=== PATIENT | female | born 1970 | race Caucasian/White ===

== ENCOUNTER 2016-07-10 13:18 | Inpatient (IN) | payer BC ==
[~2016-07-10] VITALS: Ht 180.3 cm; Wt 85.0 kg
--- NOTE | ~2016-07-10 | CON ---
PATIENT'S NAME: BETH PATEL [facility] AGE: 45 Y [address] ROOM: [address] [place], [place] [address] LOCATION: GPCU ADMIT DATE: 07/10/2016 Consultation DISCHARGE DATE: FAMILY PHYSICIAN: Priyanka Daugherty APRN ATTENDING PHYSICIAN: Negin CHIRINOS DATE OF CONSULTATION: 07/12/2016 REFERRING PHYSICIAN: Darrin Alexander MD REFERRING PROVIDER: Roby Mina MD REASON FOR CONSULTATION: Atypical chest pain, elevated lipase. HISTORY OF PRESENT ILLNESS: This is a very pleasant, 45-year-old female with no significant past medical history. The patient reports approximately a week ago, she began having fevers with temperature of a 101 degrees as well as general "flu-like symptoms" including nausea, muscle aches, and a few episodes of vomiting. The patient also, at that time, began experiencing chest pressure in the right upper chest. She does complain of some "abdominal discomfort," though denies any kristofer abdominal pain. She has been evaluated at a [facility], was told that she had "chest wall inflammation," and had been discharged. She has been taking ibuprofen 400 mg on a regular basis. The patient states that general malaise and flu-like symptoms continued. She presented to the clinic on the day of admission with significant workup including lab and chest x-ray that were all within normal limits. She was sent to our emergency room for evaluation. She has been worked up cardiac-graham, and all cardiac workup has been negative. She does state that her fever has improved, though continues to have malaise with general body aches and mild sore throat. Lipase was obtained showing elevation at 2043, completed this morning. The patient, on admission, had a lipase of 662 as well as amylase of 65. The patient denies any kristofer GERD-like symptoms. She does state occasionally she will have some "heartburn" if she eats the wrong things. She denies any acute abdominal pain at this time. She has been afebrile while in the hospital. The patient has been able to tolerate half a piece of toast and some apple juice without any increase of pain after ingestion. She does complain of some constipation, where her normal bowel movements are day to day. She also has accompanying headaches. CT abdomen and pelvis was completed last evening, and this did show normal pancreas and biliary tree; this was a negative study. She denies any melena or hematochezia. No history of upper endoscopy or colonoscopy. The patient currently denies any chest pain, chest pressure, shortness of breath, fever, or chills. PATIENT'S NAME: BETH PATEL [facility] AGE: 45 Y [address] ROOM: [place] [address] LOCATION: GPCU ADMIT DATE: 07/10/2016 Consultation DISCHARGE DATE: FAMILY PHYSICIAN: Priyanka Daugherty APRN ATTENDING PHYSICIAN: Negin CHIRINOS PAST MEDICAL HISTORY: Headaches. PAST SURGICAL HISTORY: No history of upper endoscopy or colonoscopy. She denies any other surgeries. SOCIAL HISTORY: The patient is a principal at an elementary school. She denies any alcohol, tobacco, or illicit drug use. FAMILY HISTORY: Significant family history for grandparents having colon cancer and brain cancer. She also states that her father had "problems with his gallbladder." ALLERGIES: NO KNOWN MEDICATION ALLERGIES. CURRENT MEDICATIONS: Please refer to the medication administration record. REVIEW OF SYSTEMS: A 10-point review of systems was completed, all were negative except for those identified in the History of Present Illness. PHYSICAL EXAMINATION: GENERAL: A very pleasant, 45-year-old female, lying in bed, who appears to be in no acute distress. VITAL SIGNS: Temperature 98.2, pulse of 69, respirations of 16, blood pressure 110/60, and oxygen saturation is 95% on room air. SKIN: [place], warm, and dry. No jaundice. HEENT: Head is normocephalic and atraumatic. Pupils are equal, round, and reactive to light. Sclerae are clear, nonicteric. Oral mucosa is pink and moist. No thyromegaly. NECK: Soft and supple. CARDIOVASCULAR: Regular. Normal S1 and S2. RESPIRATORY: Respirations even and unlabored. Lungs clear to auscultation. ABDOMEN: Soft and round. Tender in the midepigastric area as well as the right upper quadrant. Bowel sounds positive to hypoactive x4 quadrants. MUSCULOSKELETAL: No muscle weakness or atrophy. EXTREMITIES: No clubbing, cyanosis, or edema. NEUROLOGICAL: Grossly nonfocal. LABORATORY AND DIAGNOSTIC DATA: Cardiac enzymes have all been within normal limits. White blood cell count of 5.5, hemoglobin of 13.5, hematocrit of 40.0, and platelets of 191. Chemistry PATIENT'S NAME: BETH PATEL [facility] AGE: 45 Y [address] ROOM: [address] [place], [place] [address] LOCATION: GPCU ADMIT DATE: 07/10/2016 Consultation DISCHARGE DATE: FAMILY PHYSICIAN: Priyanka Daugherty APRN ATTENDING PHYSICIAN: Negin CHIRINOS panel includes a glucose of 148, BUN of 10, creatinine is 0.9, sodium 140, potassium of 3.5, chloride of 108, and CO2 of 24. Albumin of 3.6. AST of 10, ALT of 15, and alkaline phosphatase of 53. Total bilirubin 0.9. Lipase on admission was 662; on recheck this morning, it was 2043. Amylase is 65. Chest x-ray completed on 07/11/[address] abdomen and pelvis completed on 07/11/2016 showed negative abdomen with normal pancreas and biliary tree. Negative pelvis. No findings of appendicitis. ASSESSMENT AND PLAN: Again, this is a very pleasant, 45-year-old female who was admitted with chest pressure x1 week. 1. In regard to the patient's atypical chest pain, noncardiac, all workup has been negative for cardiac. The patient complains of some right-sided abdominal pain as well as has had recent frequent nonsteroidal antiinflammatory drug use. At this time, it is recommended for the patient to undergo an upper endoscopy to rule out nonsteroidal antiinflammatory drug-induced ulcer, peptic ulcer disease, or possible celiac disease. 2. Elevated lipase. We do recommend continue trending her pancreatic enzyme. This could be related to mild pancreatitis, though CT scan was negative for any pancreatic fluid. This may also be related to duodenal ulceration, and this could be evaluated during an upper endoscopy. The patient will be made n.p.o. at midnight in preparation for the procedure. The patient verbalizes understanding. Further recommendations will be given status post upper endoscopy. Thank you for this consult and allowing us to participate in the care of this patient. ANA GOLD APRN FOR TIANNA HASSAN MD [facility]/modl /[id number] d: 07/12/16 1456 t: 07/24/16 1150, CONSULTATION REPORT
--- NOTE | ~2016-07-10 | HP ---
PATIENT'S NAME: BETH PATEL [facility] AGE: 45 Y [address] ROOM: [place] [address] LOCATION: GPCU ADMIT DATE: 07/10/2016 History & Physical DISCHARGE DATE: FAMILY PHYSICIAN: Priyanka Daugherty APRN ATTENDING PHYSICIAN: Negin CHIRINOS DATE OF SERVICE: CHIEF COMPLAINT: Chest pain. HISTORY OF PRESENT ILLNESS: The patient is a 45-year-old female with no significant past medical history, who presents here from [place] with chest pain. The patient reports that for the past week or so, she has been having fever with temperature of 101 degree Fahrenheit, last recorded 2 days ago, nausea, muscle aches, and few episodes of vomiting and also associated some sore throat. The patient has been experiencing these symptoms for the past few days and also noticed that she is having some pressure like chest pain around her right upper chest. The patient was seen at [place] and was told that this is due to chest wall inflammation and was discharged home with ibuprofen. However, the patient's symptom of general malaise and flu-like symptoms and also chest pressure continued. The patient once again was seen today at the clinic and had a significant workup, lab work, and chest x-ray including normal D-dimer and within normal limits troponin and normal chest x-ray. However, the patient continued to complain of chest pain and was sent to our emergency department for further evaluation. The patient reports that her chest pain is constant. It is right upper chest. There is no alleviating and exacerbating factors. She currently rates her chest pain 5/10. On palpation of chest wall, chest pain is somewhat reproducible. She also reports that her fever has improved but continued to be malaise with general body ache and mild sore throat. The patient denies shortness of breath, abdominal pain, diarrhea, orthopnea, lower extremity edema, or dyspnea on exertion. MEDICAL HISTORY: No significant medical history. SURGICAL HISTORY: No significant surgical history. FAMILY HISTORY: The patient reports that her grandparents have a history of colon cancer and brain cancer. SOCIAL HISTORY: PATIENT'S NAME: BETH PATEL [facility] AGE: 45 Y [address] ROOM: [place] [address] LOCATION: GPCU ADMIT DATE: 07/10/2016 History & Physical DISCHARGE DATE: FAMILY PHYSICIAN: Piryanka Daugherty APRN ATTENDING PHYSICIAN: Negin CHIRINOS She is a principal at elementary school. MEDICATIONS: Ibuprofen. REVIEW OF SYSTEMS: All systems reviewed. All negative except what is stated in the HPI. PHYSICAL EXAMINATION: VITAL SIGNS: Blood pressure of 115/64, temperature of 98.2, respiratory rate of 12, and pulse of 68. GENERAL APPEARANCE: The patient is alert and awake, in no acute distress. EYES: Sclerae non-icterus. Extraocular muscle intact. NOSE: No nasal bleed. EARS: No ear discharge. NECK: No JVD. Supple. CHEST: Clear to auscultation bilaterally. HEART: Regular rate and rhythm. No murmurs, rubs, or gallops are heard. On palpation of the right upper chest wall, pain is somewhat reproducible. ABDOMEN: Soft, nontender, and nondistended. SKIN: Warm to touch. No obvious lesion. MUSCULOSKELETAL: Range of motion intact. No obvious effusion and swelling noted. FAMILY ASSISTANT: Alert and oriented. Motor and sensory grossly intact. LABORATORY DATA: Normal level of ESR, D-dimer within normal limits. Troponin x1 negative. White blood cell count of 6.7, hemoglobin of 14.9, and platelet of 200. EKG: Normal sinus rhythm. No ischemic ST and T-wave changes. ASSESSMENT AND PLAN: 1. Chest pain. The patient is presenting with atypical chest pain with a concurrent history of flu-like symptoms. Etiology most likely secondary to musculoskeletal versus pericarditis. However, pericarditis is not entertained as the patient is having concurrent flu-like symptom during these episodes. Initial EKG does not show any diffuse ST elevation or IL depression. ESR and CRP done at outpatient is within normal limits. However, we will acquire echocardiogram to further investigative if the patient has some pericarditis with some effusion. We will also trend troponin just to rule out acute coronary syndrome. We will hold any stress test if cardiac enzymes are negative x3 as the patient's pretest probability for acute coronary syndrome is low. 2. Viral illness. Rapid flu is negative. We will treat symptomatically. We will follow up the patient clinically. Greater than 30 minutes was spent on patient care including chart examination, PATIENT'S NAME: BETH PATEL [facility] AGE: 45 Y [address] ROOM: [address] [address] LOCATION: [facility] ADMIT DATE: 07/10/2016 History & Physical DISCHARGE DATE: FAMILY PHYSICIAN: Priyanka Daugherty APRN ATTENDING PHYSICIAN: Negin CHIRINOS lab evaluation, and direct contact with the patient. Assessment and plan was discussed with the patient. The patient understands the treatment plan. All questions were answered satisfactorily. MD JUVE ELIAS/nilesh /[id number] D: [id number] T: [id number] HISTORY & PHYSICAL
--- NOTE | ~2016-07-10 | OR ---
PATIENT'S NAME: BETH PATEL [facility] AGE: 45 Y [address] ROOM: [place] [address] LOCATION: GPCU ADMIT DATE: 07/10/2016 OR/Procedure Report DISCHARGE DATE: 07/14/2016 FAMILY PHYSICIAN: Priyanka Daugherty APRN ATTENDING PHYSICIAN: Negin CHIRINOS SURGEON: Brandy Fox MD STREET LIGHT SERVICER: DATE OF PROCEDURE: 07/13/2016 PROCEDURE: Esophagogastroduodenoscopy with biopsies. INDICATION: Abdominal pain, nausea. MEDICATIONS: Please see Anesthesiology record for details. CONSENT: The risks/benefits/alternatives were discussed and the patient or her power of health care attorney expressed understanding and agreed to proceed. Informed consent was obtained and placed in the chart. Time-out was completed prior to starting the procedure. PROCEDURE: Patient was placed in the left lateral decubitus position. One- lead EKG monitoring was used along with intermittent blood pressure monitoring and pulse oximetry. Bite block was placed in the patient's mouth. The above medications were given and titrated to response. Once adequate sedation was completed, the endoscope was passed through the patient's mouth into the posterior oropharynx. The endoscope was then passed into the esophagus, stomach and duodenal bulb. The duodenum was examined through the third portion. The endoscope was then withdrawn into the stomach. In the stomach, retroflexion was completed. The scope was then straightened and withdrawn from the patient. The patient tolerated the procedure well. There were no complications. FINDINGS: 1. Normal esophagus. 2. Mild gastritis in the antrum, status post biopsies to evaluate for H. pylori. 3. Normal duodenum, status post biopsies to rule out celiac disease. ASSESSMENT AND PLAN: Abdominal pain and nausea: Nothing seen on EGD to explain the patient's symptoms. I suspect she likely has a viral gastroenteritis. We will proceed with a HIDA scan to rule out gallbladder pathology. PATIENT'S NAME: BETH PATEL [facility] AGE: 45 Y [address] ROOM: [place] [address] LOCATION: GPCU ADMIT DATE: 07/10/2016 OR/Procedure Report DISCHARGE DATE: 07/14/2016 FAMILY PHYSICIAN: Priyanka Daugherty APRN ATTENDING PHYSICIAN: Negin CHIRINOS J MD EDMUNDO SALMERON/modl /[id number] d: 07/17/164 t: 07/20/16 1358, OPERATIVE SUMMARY
--- NOTE | ~2016-07-10 | ER ---
PATIENT'S NAME: BETH PATEL [facility] AGE: 45 Y [address] ROOM: [address] [address] LOCATION: GPCU ADMIT DATE: 07/10/2016 ER/Outpatient Report DISCHARGE DATE: FAMILY PHYSICIAN: Priyanka Daugherty APRN ATTENDING PHYSICIAN: Negin BUSBY Time of Arrival: 1320 hours. Time of Exam: 1320 hours. CHIEF COMPLAINT: Nausea, vomiting, chest pressure, neck pain. HISTORY OF PRESENT ILLNESS: The patient states that she started getting ill last 07/04/2016, went to the ER in [place] where she works and had complaints of chest pressure, nausea, and elevated heart rate. She states that they did a cardiac workup at that time and told her that she just had a swollen chest cavity and to start on ibuprofen which she states she did, but she states the symptoms continued all week; , she started getting nauseated and vomiting; Sunday, she did go to the [facility], she lives in [place], and they checked a UA on her, it was normal. So, she rested most of the weekend, was nauseated most of the weekend, felt feverish off and on, went back to the [facility] today with generalized headache, right-sided; posterior neck pain; fever; and generalized body aches. They did a CBC which was normal, chem panel which was normal, D-dimer was normal, cardiac enzymes were normal, C-reactive protein was normal, EKG was normal, and the chest x-ray was normal there. They did talk with Dr. Vega, he recommended that the patient come here to the ER for further evaluation. Upon arrival to the ER, the patient continued to have just some generalized what she called chest pressure. She states it was worse with activity. She has been nauseated, has not vomited today. Has continued to have fever and chills. Denies any pain or discomfort when urinating. Did have some diarrhea stools yesterday, but had normal stool today. ALLERGIES: SHE HAS NO KNOWN ALLERGIES. CURRENT MEDICATIONS: None. PAST MEDICAL HISTORY: Benign. PAST SURGERIES: She did have surgery on her kidney at age of 5. PATIENT'S NAME: BETH PATEL [facility] AGE: 45 Y [address] 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 Has not traveled anywhere. Does not smoke or drink alcohol on a regular basis or use drugs. She did receive an influenza immunization this year. REVIEW OF SYSTEMS: All negative other than those mentioned in the HPI. PHYSICAL EXAMINATION: VITAL SIGNS: She weighed 87.5 kg, blood pressure was 155/94, pulse of 91, respirations 17, temperature of 99.2, and O2 saturations 100% on room air. GENERAL: She is awake, alert, and oriented x4. SKIN: [place], warm, and dry. LUNGS: Respirations are even and nonlabored. HEENT: TMs are dull. Nasal is clear. Oropharynx is clear. NECK: Supple. No lymphadenopathy. LUNGS: Lung sounds are clear throughout. HEART: Regular rate and rhythm. ABDOMEN: Soft, nondistended. Bowel sounds are present. No peripheral edema is noted. She walked in with a steady even gait. NEURO: Cranial nerves 2 through 12 are grossly intact. EMERGENCY DEPARTMENT COURSE: Cardiac enzymes were repeated along with a free T4 and a TSH, they are within normal limits. Did repeat the EKG, does show some ST changes in the lateral leads, it was reviewed with Dr. Bernardo. Swabbed her for influenza A and B, which is negative. Saline lock was initiated. Patient was given Nitroglycerin 0.4mg SL without any relief of chest pain. Ibuprofen 600mg po was given for headache. Zofran 0.4mg IV was given for nausea. I did talk with Dr. Vega, he would like her to be admitted for further evaluation. Probable echocardiogram. Dr. Busby, the hospitalist, was contacted. IMPRESSION: Chest pain. PLAN: The patient will be placed in observation in PCU by the hospitalist. The patient verbalized understanding. RACHEL CERDA APRN FOR MD JUNAID RIDER/nilesh PATIENT'S NAME: BETH PATEL [facility] AGE: 45 Y [address] ROOM: [place] [address] LOCATION: [facility] ADMIT DATE: 07/10/2016 ER/Outpatient Report DISCHARGE DATE: FAMILY PHYSICIAN: Priyanka Daugherty APRN ATTENDING PHYSICIAN: Negin BUSBY /[id number] d: 07/10/162238 t: 07/17/16 0618, OUTPATIENT REPORT
--- NOTE | ~2016-07-10 | ECHO ---
Transthoracic Echocardiography Report (TTE) Demographics Patient Name BETH PATEL Date of Study 07/11/2016 Patient Number [id number] Visit Number [id number] Date of 1970 Room Number G6304 Accession Number [id number] Gender Female Age 45 year(s) Referring Kehinde Kam [employer] Coating Machine Setter Valencia Hahn Physician [facility] Lacy Mckeon Physician Interpreting Catherine Clifford MD Orthotic Practitioner Physician Supervising Ordering Physician Kehinde Kam MD/TOI Nurse Stress Hand Alterations Seamstress Conclusions Contractility Score Summary Normal Left Ventricular contractility was noted. Summary The estimated left ventricular ejection fraction is 60%. Normal left ventricle size and function. No significant valvular abnormalities. Procedure Type of Study TTE procedure:2D Echocardiogram, M-Mode, Doppler , Color Doppler. Procedure Date Date: 07/11/2016 Start: 07:46 AM Study Location: Inpatient Portable Technical Quality: Good visualization Indications:Chest pressure and Pericarditis. Appropriate Use Criteria: 9 Patient Status: Routine HR: 85 bpm BP: 120/79 mmHg M-Mode/2D Measurements LV Diastolic Dimension: 4.62 cm LV Systolic Dimension: 2.9 cm LV Septum Diastolic: 0.94 cm LV PW Diastolic: 0.87 cm AO Root Dimension: 2.9 cm Cardiac Output: 6.04 l/min LA Dimension: 2.6 cm LVOT: 2.2 cm LVOT VTI: 18.7 cm RV Base: 3.18 cm LV Stroke volume: 71.05 ml RV Length: 5.84 cm TAPSE: 1.83 cm TDI-S': 10.2 cm/s Doppler Measurements AV Peak Velocity: 1.38 m/s MV Peak E-Wave: 0.81 m/s AV Peak Gradient: 7.62 mmHg MV Peak A-Wave: 0.45 m/s AV Mean Gradient: 4 mmHg MV E/A Ratio: 1.81 LVOT Peak Velocity: 1.08 m/s MV Deceleration Time: 301 msec TR Velocity:1.75 m/s PV Peak Velocity: 1.11 m/s TR Gradient:12.25 mmHg PV Peak Gradient: 4.93 mmHg A' Septal Velocity: 0.06 m/s E' Septal Velocity: 0.12 m/s A' Lateral Velocity: 0.1 m/s E' Lateral Velocity: 0.15 m/s Findings Left Ventricle Normal left ventricle size and function. Right Ventricle Normal right ventricle structure and function. Left Atrium Normal left atrial size. Right Atrium Normal right atrial size. IVC measures 1.80 cm with inspiratory collapse. Mitral Valve Normal mitral valve structure and function. Aortic Valve Normal aortic valve structure and function. Tricuspid Valve Trivial tricuspid regurgitation by color Doppler. Pulmonic Valve Trivial pulmonic valve regurgitation by color Doppler. Pericardial Effusion No evidence of pericardial effusion. Miscellaneous Visualized portions of the aortic root and ascending aorta appear normal in size. Pleural Effusion No evidence of pleural effusion. Contractility Score LV regional wall motion:(0-Non visualized 1-Normal 2-Hypokinesis 3-Akinesis 4-Dyskinesis 5-Aneurysm) Signature dtt: Darrin Alexander (cardio) dtd: 07/11/16 0746 Physician Self Edit
--- NOTE | ~2016-07-10 | CON ---
PATIENT'S NAME: BETH PATEL [facility] AGE: 45 Y [address] ROOM: [place] [address] LOCATION: GPCU ADMIT DATE: 07/10/2016 Consultation DISCHARGE DATE: FAMILY PHYSICIAN: Priyanka Daugherty APRN ATTENDING PHYSICIAN: Negin BUSBY REFERRING PHYSICIAN: Tom Veras MD REFERRING PHYSICIAN: Dr. Busby. REASON FOR CONSULT: Chest pain. HISTORY OF PRESENT ILLNESS: This is a 45-year-old female, who was admitted through the emergency room with complaints of chest pressure, nausea, and elevated heart rate. She had been in the emergency room in [place] on 07/04/2016 with similar symptoms. At that time, she had a cardiac workup and was told to start ibuprofen. The symptoms continued, so she went to the [facility] in [place], and they checked a urine, it was normal. In addition, she had been having muscle aches and a fever as high as 101. She was found to have a normal CRP and ESR. She did not have an elevated white count, but she did complain of headache, right- sided chest pain, and posterior neck pain as well as generalized body ache. She says the chest pain seems to be worsening with walking, but it is there constantly. She also notes that her chest is tender to touch on the right thorax area. She has constant nausea in the epigastric region. She denies shortness of breath, orthopnea, PND, or peripheral edema. She has not felt any palpitations, but over the weekend, she did have some skipped beat sensations when she had the flu like symptoms. ALLERGIES: NONE TO MEDICATION. PAST MEDICAL HISTORY: She had exposure to TB. She has had hypothyroidism off and on but currently is not on medications. PAST SURGICAL HISTORY: She had ureteral reattachment at the age of 46 years old for reflux. She has also had a right breast biopsy and 4 moles removed. HOME MEDICATIONS: None. SOCIAL HISTORY: She smokes 1 to 3 cigarettes whenever she goes out and has a drink. She used PATIENT'S NAME: BETH PATEL [facility] AGE: 45 Y [address] ROOM: [place] [address] LOCATION: GPCU ADMIT DATE: 07/10/2016 Consultation DISCHARGE DATE: FAMILY PHYSICIAN: Priyanka Daugherty APRN ATTENDING PHYSICIAN: Negin BUSBY to smoke more than that but quit in 1996. FAMILY HISTORY: Parents have a history of colon cancer and brain cancer. Father has had problems with his gallbladder. She has 3 siblings who are alive and well. REVIEW OF SYSTEMS: GENERAL: She just feels generalized malaise. HEAD: She has occasional headaches and migraines at times. EYES: No blurred vision or double vision. EARS: No problems with hearing. NOSE: No epistaxis or rhinorrhea. MOUTH: No gingival bleeding. THROAT: Denies sore throat, hoarseness, or difficulty swallowing. PULMONARY: Denies cough or hemoptysis. GASTROINTESTINAL: Positive for nausea and no vomiting. Currently, no history of elevated liver enzymes. No yellow jaundice. GENITOURINARY: Positive for ureteral reattachment as a young child. No problems with kidney stones or urinary tract infection. MUSCULOSKELETAL: No complaints of arthralgias or myalgias. NEUROLOGIC: Denies numbness or tingling or TIA symptomatology. PHYSICAL EXAMINATION: VITAL SIGNS: Blood pressure is 107/57, heart rate 75, she is 5 feet 11 inches, weighs 187 pounds, BMI 26.1. HEENT: Pupils are equal, round, and react briskly to light. EOMs are intact. NECK: Soft and supple. No lymphadenopathy. No thyromegaly. JVD is flat. LUNGS: Lung sounds are clear. CV: Regular with a normal S1 and S2. She does have some tenderness in the right upper chest wall area as well as some nausea in the epigastric region. ABDOMEN: Soft. Bowel sounds are present in all 4 quadrants. EXTREMITIES: Show no peripheral edema. No clubbing. No cyanosis. Distal pulses are 2+/4. LABORATORY DATA: Cardiac enzymes are negative. Hemoglobin is 14.9, white count 6.7. TSH 2.280. BUN is 10, creatinine 0.9, sodium 140, potassium is 3.5. She had an echocardiogram showing a normal EF without any valvular disease. Her EKG showing a regular sinus rhythm without ST or T-wave changes. ASSESSMENT: Atypical chest pain, question whether or not we should check an amylase and lipase. She has had a negative bilirubin. We will discuss further care with Dr. Ben Veras. I suspect we will get her up to walk her to see if her chest pain gets any worse, but I doubt this is cardiac in nature. PATIENT'S NAME: BETH PATEL [facility] AGE: 45 Y [address] ROOM: [id number] [place] [address] [facility] ADMIT DATE: 07/10/2016 Consultation DISCHARGE DATE: FAMILY PHYSICIAN: Priyanka Daugherty APRN ATTENDING PHYSICIAN: Negin BUSBY The assessment and plan, history of preseent illness and physical exam are per Dr. Ben Veras. OPAL GRIDER APRN FOR TOM VERAS MD TGP/modl /[id number] d: 07/12/162122 t: 08/04/16 0920, CONSULTATION REPORT
--- NOTE | ~2016-07-10 | DS ---
PATIENT'S NAME: BETH PATEL [facility] AGE: 45 Y [address] ROOM: [address] [address] LOCATION: GPCU ADMIT DATE: 07/10/2016 Discharge Summary DISCHARGE DATE: 07/14/2016 FAMILY PHYSICIAN: Priyanka Daugherty APRN ATTENDING PHYSICIAN: Kehinde Kam ATTENDING PHYSICIAN: Roby Spencer M.D. FINAL DIAGNOSES: 1. Right chest pain, likely costochondritis, resolved. 2. POTS syndrome, postural orthostatic tachycardia syndrome. 3. Elevated lipase. 4. Anxiety disorder. 5. Viral illness. 6. Palpitations/sinus tachycardia, improving. CONSULTATIONS: 1. Cardiology, Dr. Darrin Alexander. 2. GI, Dr. Fox. PROCEDURE: EGD by Dr. Fox with negative biopsies. REASON FOR ADMISSION: This is a 45-year-old female who presented with nausea and right-sided chest pain. The patient was evaluated in the ER and then further admitted for evaluation and management of her right-sided chest pain. Please see Dr. Busby's admission H and P for further details. DIAGNOSTIC STUDIES: Transthoracic echocardiogram was done and showed normal left ventricular contractility with ejection fraction of 60%. No significant valvular abnormalities noted. The patient had serial cardiac enzymes done that were essentially normal. CPK was normal. Troponin I less than 0.04 x6. Serial CBC showed normal white count, hemoglobin, hematocrit, and platelet levels. Serial BMP showed normal electrolytes and kidney function tests. Liver function tests were normal. Amylase 65, lipase 662 on admission. Lipase elevated at 2043 subsequent day and was declining at 1419 subsequently. CK-MB less than 0.05 x6. HCG quantitative less than 1.0 and negative. Free T4 1.3, TSH 2.28. Chest x-ray was done on admission and was found to be normal. CT abdomen and pelvis with contrast was done and showed negative abdomen with normal pancreas and biliary tree, negative pelvis with no findings of appendicitis noted, IUD in good position detected. The patient had a HIDA scan done that was found to be normal as well with ejection fraction of 63%. CT chest, PE protocol, was done and was found to be normal with no PE and no aortic lesions. Small bowel biopsies were done and were negative for celiac disease and PATIENT'S NAME: AMANDA, BETH K [facility] AGE: 45 Y [address] ROOM: [id number] [place], [place] [address] LOCATION: GPCU ADMIT DATE: 07/10/2016 Discharge Summary DISCHARGE DATE: 07/14/2016 FAMILY PHYSICIAN: Priyanka Daugherty APRN ATTENDING PHYSICIAN: Kehinde Kam negative for viral cytopathic change. Gastric mucosa biopsy showed no diagnostic alterations and negative for Helicobacter and negative for viral cytopathic change. HOSPITAL COURSE: This is a 45-year-old female who presented with right-sided chest pain. The patient had a viral illness for about a week prior to presenting. She then started developing right-sided chest pain. She also stated that she had palpitations when she moved around. EKG showed sinus rhythm and no acute ST changes. The patient did have palpitations. Cardiology was consulted. Cardiac enzymes were trended and were essentially negative. Dr. Alexadner followed up with the patient and thought that the patient had a very low pretest probability for a stress test. No stress test was indicated. Her right-sided chest pain was reproducible. This was thought to be likely costochondritis. She was given pain medications. The patient then developed nausea. Her lipase was elevated, this was likely secondary to nausea. A CT abdomen and pelvis with contrast was done and no changes were noted on the pancreas. The patient never had any vomiting. She was given Zofran for nausea and nausea was very well controlled. GI was consulted. The patient underwent an EGD and biopsies were all negative for celiac disease as well as Helicobacter pylori. She then subsequently underwent a HIDA scan that showed normal ejection fraction for the HIDA scan. After the EGD, the patient was feeling better. Her nausea was resolving. No etiology could be found for the right-sided chest pain. Right-sided chest pain was resolving at the time of discharge. As far as her palpitations are concerned, the patient did not have any orthostatic hypotension. She was placed on Cardizem for likely esophageal spasm and she showed some resolution of symptoms. She also had tachycardia with positional change. I likely think that the patient has POTS syndrome. She was advised high salt and plenty of fluid intake. She was ambulating in the hallway without any problems. She will follow up with Cardiology and her primary care physician. I did discuss the case with her PCP Priyanka Daugherty. DISCHARGE INSTRUCTIONS: The patient is discharged on regular diet with high- salt diet and more fluid intake. Activities as tolerated. Follow up with Dr. Marco Alexander, Cardiology in 1 month. Follow up with Priyanka Daugherty in 3 to 4 days' time. PCP to check a CBC and a BMP. If the patient has palpitations, PCP to arrange Cardiology appointment sooner. PATIENT'S NAME: BETH PATEL [facility] AGE: 45 Y [address] ROOM: [place] [address] [facility] ADMIT DATE: 07/10/2016 Discharge Summary DISCHARGE DATE: 07/14/2016 FAMILY PHYSICIAN: Priyanka Daugherty APRN ATTENDING PHYSICIAN: Kehinde Kam DISCHARGE MEDICATIONS: 1. Cardizem 30 mg p.o. b.i.d., hold for heart rate less than 60 and systolic less than 110, new medication. 2. Tylenol 650 mg p.o. q.4 hours p.r.n. pain, maximum 3000 mg per day. 3. Protonix 40 mg p.o. daily. 4. Zofran 4 mg p.o. q.4-6 hours p.r.n. nausea/vomiting. This patient was managed by hospitalist, Cardiology, and GI teams during this admission. ROBY SPENCER MD MT/nilesh /[id number] CC: Priyanka Daugherty APRN d: 07/18/16 0323 t: 07/30/16 1541, DISCHARGE SUMMARY
[2016-07-10 14:10] LABS: CPK 80 IU/L (21-215)
[2016-07-10] MEDS ORDERED: ADVIL200 MG PO (16:36)
--- NOTE | 2016-07-10 17:07 | NUR ---
Patient is 45 yo female admitted from [facility] to the ER here. patient states she has been having nausea for about a week. started having chest pains today. went to the ER is [place] and is transferred to ER here. patient has saline lock in left hand, no erythema or edema is noted at site. education is given as documented. patient denies questions. pneumatics are on bilat calves. patient nahun well. call light is within reach. denies needs at this time. report is given to LIAS Ambrosio.
[2016-07-10 20:20] LABS: CPK 75 IU/L (21-215)
[2016-07-11 02:38] LABS: CPK 80 IU/L (21-215)
--- NOTE | 2016-07-11 05:32 | NUR ---
Significant Event: Patient alert and oriented x3. Vital signs stable. On RA. Complained of headache, nausea, and anxiety this shift. Tylenol, Zofran, and Ativan all given x1 with relief. Continues to complain of chest pressure. Rates as 1/10. States has not changed since admission. Patient D/C'd L. Hand PIV. New one started. Saline Locked. NPO since midnight. Up Ad Graciela in room. Calm and cooperative with all cares. Follow up: [facility] today.
[2016-07-11 08:19] LABS: CPK 81 IU/L (21-215)
--- NOTE | 2016-07-11 10:01 | NUR ---
PT SCREENED D/T (+) MST. PT STATES SHE HAS ONLY LOST 3# D/T NAUSEA X ONE WEEK. ZOFRAN EFFECTIVE. WT LOSS NOT SIGNIFICANT. NO NUTRITION-RELATED DX IDENTIFIED AT THIS TIME.
[2016-07-11 11:00] LABS: BASOPHIL % 0.7 %; EOSINOPHIL % 0.5 %; HEMOGLOBIN 13.5 g/dL (10.0-15.0); IMMATURE GRANULOCYTE % 0.2 %; LYMPHOCYTE # 1.4 K/uL (0.8-4.0); LYMPHOCYTE % 25.1 %; MCH 29.4 pg (27.0-34.0); MCHC 33.8 gm/dL (32.0-36.5); MCV 87.1 fl (83.0-98.0); MONOCYTE # 0.3 K/uL (0.0-1.0); MONOCYTE % 5.3 %; MPV 10.5 fl (9.4-12.4); NEUTROPHIL # (ANC) 3.8 K/uL (1.8-7.8); NEUTROPHIL % 68.2 %; NRBC % 0 /100WBC (0-0.00); PLATELET COUNT 191 K/uL (150-450); RBC 4.59 M/uL (3.50-5.50); RDW-CV 11.8 % (11.9-14.6); WBC 5.5 K/uL (4.0-11.0)
[2016-07-11 11:20] LABS: ALBUMIN 3.6 gm/dL (3.5-5.0); ALK PHOS 53 IU/L (33-138); ALT 15 IU/L (12-78); ANION GAP 11.5 (10.0-19.0); AST 10 IU/L (10-40); BLOOD UREA NITROGEN 10 mg/dL (6-24); CALCIUM 8.2 mg/dL (8.5-10.5); CHLORIDE 108 mMol/L (96-110); CO2 24 mMol/L (22-32); CREATININE 0.9 mg/dL (0.5-1.1); ESTIMATED GFR (MDRD EQUATION) > 60; POTASSIUM 3.5 mMol/L (3.7-5.1); SODIUM 140 mMol/L (135-145); TOTAL BILIRUBIN 0.9 mg/dL (0.0-1.5); TOTAL PROTEIN 6.8 g/dL (6.0-8.4)
[2016-07-11 11:23] LABS: CPK 73 IU/L (21-215)
--- NOTE | 2016-07-11 17:49 | NUR ---
Significant Event: A/O X 3. CONT. WITH A SLIGHT PRESSURE OF RT. CHEST, WITH NO RADIATION. ECHO NORMAL. DR. VERAS (CARDIO) SEEN. QUESTIONED MAYBE GI ISSUE. PT. NOTED TO HAVE ELEVATED HR FROM 90-120'S, BUT NOT SUSTAINED. DENIES ANY DISCOMFORT WITH THIS. TYLENOL FOR HEADACHE, CONT.TO RATE AT A "5". ZOFRAN GIVEN EARLY EVENING FOR NAUSEA. NO EMESIS. HAS A "BOYFRIEND", THAT HAS BEEN SUPPORTIVE. Follow up: CONT. TO MONITER. CT SCAN ABD/PELVIS LATE AFTERNOON DONE.
[2016-07-11 17:54] LABS: CPK 78 IU/L (21-215)
--- NOTE | 2016-07-12 04:45 | NUR ---
Significant Event: Patient alert and oriented x3. HR 60s-80s. All other vital signs stable. On RA. Complainted of headache and anxiety throughout shift. Tylenol and Ativan given with relief with rest. Scheduled Protonix helped with complaints of nausea. Chest pressure continues unchanged. Up Ad Graciela in room. Calm and cooperative with all cares. Follow up: Will continue to monitor per plan of care.
--- NOTE | 2016-07-12 13:07 | NUR ---
Introduced self and role of care management to patient and her family. She lives by herself in [place]. 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 She states that she is able to do all her own ADl's. She has family and friends that assist as needed. She plans on returning home on discharge. She denies any needs at this time. Will continue to follow.
--- NOTE | 2016-07-12 16:34 | NUR ---
Significant Event: VSS AND RA. AFEBRILE. TYLENOL X1 FOR BURNETT AND RT) CP, ZOFRAN X2 FOR NAUSEA, NO EMESIS. GI CONSULTED FOR ELEVATED LIPASE, TO BE NPO P MN FOR EGD IN THE AM WITH DR. SHEEHAN. DR. VERAS AWARE OF THE GI CONSULT/PLAN. POOR APPETITE. VOIDS WITH ADEQUATE UOP. UP AND AMBULATES IN [place]. K-PAD FOR HEADACHE AND NECK PAIN. PT/FAMILY UPDATED ON POC. Follow up: CONTINUE PLAN OF CARE; EGD IN THE AM
[2016-07-13 03:05] LABS: BASOPHIL % 0.7 %; EOSINOPHIL # 0.1 K/uL (0.0-0.5); EOSINOPHIL % 1.5 %; HEMATOCRIT 40.6 % (33.0-46.0); HEMOGLOBIN 13.5 g/dL (10.0-15.0); IMMATURE GRANULOCYTE % 0.3 %; LYMPHOCYTE # 2.1 K/uL (0.8-4.0); LYMPHOCYTE % 35.3 %; MCH 29.4 pg (27.0-34.0); MCHC 33.3 gm/dL (32.0-36.5); MCV 88.5 fl (83.0-98.0); MONOCYTE # 0.4 K/uL (0.0-1.0); MPV 10.6 fl (9.4-12.4); NEUTROPHIL # (ANC) 3.3 K/uL (1.8-7.8); NEUTROPHIL % 55.2 %; NRBC % 0 /100WBC (0-0.00); PLATELET COUNT 184 K/uL (150-450); RBC 4.59 M/uL (3.50-5.50); RDW-CV 11.9 % (11.9-14.6)
[2016-07-13 03:34] LABS: ANION GAP 9.9 (10.0-19.0); BLOOD UREA NITROGEN 8 mg/dL (6-24); CALCIUM 8.2 mg/dL (8.5-10.5); CHLORIDE 108 mMol/L (96-110); CO2 25 mMol/L (22-32); CREATININE 0.9 mg/dL (0.5-1.1); ESTIMATED GFR (MDRD EQUATION) > 60; POTASSIUM 3.9 mMol/L (3.7-5.1); SODIUM 139 mMol/L (135-145)
--- NOTE | 2016-07-13 19:28 | NUR ---
Significant Event: Patient alert and oriented x3. Vital signs stable. On RA. Had EGD and HIDA scan today. Results of EGD were negative. Results of HIDA scan not available as of yet. Patient complained of nausea this morning. Zofran given with relief. Complaints of headache after HIDA scan. Tylenol given with relief. Up Ad Graciela in room and halls. Family at bedside throughout the day. Very anxious for results. Patient calm and cooperative with all cares. Ready for dismissal. Follow up: Will continue per plan of care.
[2016-07-14 03:54] LABS: BASOPHIL # 0.1 K/uL (0.0-0.2); BASOPHIL % 0.9 %; EOSINOPHIL # 0.1 K/uL (0.0-0.5); EOSINOPHIL % 1.4 %; HEMATOCRIT 40.5 % (33.0-46.0); HEMOGLOBIN 13.3 g/dL (10.0-15.0); IMMATURE GRANULOCYTE % 0.2 %; LYMPHOCYTE # 1.8 K/uL (0.8-4.0); LYMPHOCYTE % 31.9 %; MCH 29.5 pg (27.0-34.0); MCHC 32.8 gm/dL (32.0-36.5); MCV 89.8 fl (83.0-98.0); MONOCYTE # 0.5 K/uL (0.0-1.0); MONOCYTE % 8.3 %; MPV 10.8 fl (9.4-12.4); NEUTROPHIL # (ANC) 3.2 K/uL (1.8-7.8); NEUTROPHIL % 57.3 %; NRBC % 0 /100WBC (0-0.00); PLATELET COUNT 167 K/uL (150-450); RBC 4.51 M/uL (3.50-5.50); RDW-CV 11.7 % (11.9-14.6); WBC 5.6 K/uL (4.0-11.0)
[2016-07-14 04:06] LABS: ANION GAP 11.9 (10.0-19.0); CALCIUM 8.4 mg/dL (8.5-10.5); CHLORIDE 107 mMol/L (96-110); CO2 25 mMol/L (22-32); CREATININE 0.8 mg/dL (0.5-1.1); ESTIMATED GFR (MDRD EQUATION) > 60; POTASSIUM 3.9 mMol/L (3.7-5.1); SODIUM 140 mMol/L (135-145)
[2016-07-14 04:07] LABS: BLOOD UREA NITROGEN 13 mg/dL (6-24)
--- NOTE | 2016-07-14 04:35 | NUR ---
Significant Event: A&Ox3, VSS on room air. Patient is up ad-taye in room. Walking halls independently X2. Denies chest pain, complains of headache and occasional nausea. Tylenol given for headache at HS, patient refused PRN zofran. Patient asked for ativan at HS to help with "anxiety and sleep". Last BM 07/09/16, PRN's ordered patient stated, "I don't feel constipated" but agreed to take PRN medication in the morning. HIDA scan yesterday normal. Follow up: determine plan of care from here. Possible D/C
[2016-07-14] MEDS ORDERED: CARDIZEM30 MG PO (15:12)
[2016-07-14] MEDS ORDERED: TYLENOL325 MG PO (15:14)
[2016-07-14] MEDS ORDERED: PROTONIX40 MG PO (15:16)
[2016-07-14] MEDS ORDERED: ZOFRAN4 MG PO (15:17)
[2016-07-14] MEDS ORDERED: ATIVAN 0.5MG0.5 MG PO (15:18)
--- NOTE | 2016-07-14 16:07 | NUR ---
Patient discharged to home at 1550. Left hand IV discontinued at 1543. Patient is alert and oriented x 3. Up in room and in halls independently. Vital signs stable. Verbalizes understanding of discharge instructions given by Shelli [employer] RN. Patient walked out with student nurse to boyfriend's vehicle at [employer] [facility].
--- NOTE | 2016-07-14 16:19 | NUR ---
Patient discharged to home, HORTENCIA LANDRUM treated with PRN Tylenol-will continue at home. CT of chest was negative. Up in halls. Educated patient on new medications, and prescriptions, and follow up appointments.
[2016-07-26] MEDS ORDERED: TRIAMCINOLONE A15 G2 TOP (17:18)
[2016-07-26] MEDS ORDERED: BYSTOLIC5 MG PO (17:19)
[2016-07-26] MEDS ORDERED: DESYREL100 MG PO (17:20)
[2016-07-26] MEDS ORDERED: LUVOX50 MG PO (17:23)
[2016-07-26] MEDS ORDERED: FLUVOXAMINE MA100 MG PO (17:25)
[2016-07-26] MEDS ORDERED: ATARAX SYR10 MG/5 ML PO (17:28)
[2016-10-25] MEDS ORDERED: KLONOPIN1 MG PO (17:46)
[2016-10-25] MEDS ORDERED: KLONOPIN0.5 MG PO (17:48)
[2016-10-25] MEDS ORDERED: FETZIMA40 MG PO (17:51)
[2016-10-25] MEDS ORDERED: MIRTAZAPINE7.5 MG PO (17:53)
[2016-10-25] MEDS ORDERED: SEROQUEL50 MG PO (17:54)
[2016-10-25] MEDS ORDERED: ZYPREXA10 MG PO (17:55)
[2016-10-25] MEDS ORDERED: ZYPREXA ZYDI5 MG PO (17:55)
[2016-10-25] MEDS ORDERED: DESYREL50 MG PO (17:56)
[2016-10-25] MEDS ORDERED: CELEXA20 MG PO (18:11)
[2016-10-25] MEDS ORDERED: SEROQUEL200 MG PO (18:16)
[2016-10-31] MEDS ORDERED: BUSPAR5 MG PO (15:46)
[2016-10-31] MEDS ORDERED: VALIUM5 MG PO (15:47)
[2016-10-31] MEDS ORDERED: NEURONTIN300 MG PO (15:48)
[2016-10-31] MEDS ORDERED: MELATONIN3 MG PO (15:52)
[2016-10-31] MEDS ORDERED: REMERON15 MG PO (15:53)
[2016-10-31] MEDS ORDERED: SEROQUEL25 MG PO (15:57)
[2016-11-23] MEDS ORDERED: EFFEXOR XR 3737.5 MG PO (18:11)
== END 2016-07-14 15:50 | disposition disaster alternative care site (69) | DRG 206 ==
LOC: GMED 13:18 → GPCU 15:25
PROVIDERS: Emergency Medicine; Family Medicine; ADMIT Internal Medicine
PROC: 0DB68ZX Excision of Stomach, Via Natural or Artificial Opening Endoscopic, Diagnostic (ICD-10-PCS; principal; 2016-07-13)
PROC: 0DB88ZX Excision of Small Intestine, Via Natural or Artificial Opening Endoscopic, Diagnostic (ICD-10-PCS; principal; 2016-07-13)
DX: M94.0 Chondrocostal junction syndrome [Tietze] (principal); F41.9 Anxiety disorder, unspecified; B34.9 Viral infection, unspecified; I49.8 Other specified cardiac arrhythmias; K29.70 Gastritis, unspecified, without bleeding; R79.89 Other specified abnormal findings of blood chemistry; K22.4 Dyskinesia of esophagus; R00.0 Tachycardia, unspecified; R00.2 Palpitations; K59.00 Constipation, unspecified
CPT/HCPCS: A9537; C9113; J1650; J2405; J7030; Q9967